=== PATIENT | female | born 1960 | race African-American/Black ===

== ENCOUNTER → 2020-07-10 | Outpatient (CLI) | payer OTHER, MEDICAID ==
[~2020-07-10] MED LIST: ABILIFY PO; AMIT50TA3 PO; AMLO-489; BUPR1TAB82 PO; DOCU-94 PO; FER325T PO; FURO1TAB33 PO; LEV50T PO; LISIPOW PO; MULTCAP45 PO; OME20GT; PERCOCET 10/325 PO; POTA1TAB61 PO; SERT-160 PO; TIZA4CAP PO; TOPI25TA43; XANAX PO; ZOLOFT PO
== END | disposition home or self-care (01) ==
LOC: Rad HDHVI 15:59
PROVIDERS: ATTEND Internal Medicine Cardiovascular Disease
DX: I35.1 Nonrheumatic aortic (valve) insufficiency (principal); R07.89 Other chest pain
CPT/HCPCS: 93306

== ENCOUNTER → 2020-08-10 | Outpatient (CLI) | payer OTHER, MEDICAID ==
[~2020-08-10] VITALS: Ht 165.1 cm; Wt 64.0 kg
== END | disposition home or self-care (01) ==
LOC: Rad HDHVI 09:12
PROVIDERS: ATTEND Internal Medicine Cardiovascular Disease
DX: I50.23 Acute on chronic systolic (congestive) heart failure (principal); R06.02 Shortness of breath
CPT/HCPCS: 93017

== ENCOUNTER 2022-08-21 11:31 | Emergency (ER) | payer OTHER, MEDICAID ==
[~2022-08-21] VITALS: Ht 157.5 cm; Wt 65.4 kg
[~2022-08-21 11:31] MED LIST changes: -AMIT50TA3 PO; +AMIT50TA5 PO
[2022-08-21 12:15] VITALS: BP 138/86
[2022-08-21 13:47] LABS: Basophils # (auto) 0 10 ^3/uL (0-0.2); Basophils % (auto) 0.3 % (0.0-2.0); Eosinophils # (auto) 0.1 10 ^3/uL (0-0.8); Hematocrit 31.5 % (36.0-46.0); Lymphocytes # (auto) 0.8 10 ^3/uL (0.4-5.4); Lymphocytes % (auto) 20.5 % (10.0-50.0); Mean Corpuscular Hemoglobin 27.2 pg (28.0-32.0); Mean Corpuscular Hgb Conc. 31.8 g/dL (32.0-36.0); Mean Corpuscular Volume 85.8 fL (80.0-100.0); Monocytes # (auto) 0.2 10 ^3/uL (0-1.3); Monocytes % (auto) 5.4 % (0.0-12.0); Neutrophils # (auto) 2.9 10 ^3/uL (1.6-8.6); Neutrophils % (auto) 71.8 % (37.0-80.0); Nucleated Red Blood Cells % 0.1 %; Red Blood Cells 3.67 10^6/uL (4.0-5.20); Red Cell Distribution Width 14.3 % (11.8-14.3)
[2022-08-21 14:22] LABS: Albumin 3.2 g/dL (3.4-5.0); Potassium 3.4 mmol/L (3.5-5.1)
[2022-08-21 14:26] LABS: BUN/Creatinine Ratio 11.8; Bilirubin, Total 0.1 mg/dL (0.2-1.0)
== END 2022-08-21 22:06 | disposition home or self-care (01) ==
LOC: ER 11:31
DX: S09.8XXA Other specified injuries of head, initial encounter (principal); M25.552 Pain in left hip; M25.512 Pain in left shoulder; E04.1 Nontoxic single thyroid nodule; R94.31 Abnormal electrocardiogram [ECG] [EKG]; W18.39XA Other fall on same level, initial encounter; Y93.89 Activity, other specified; Y92.89 Other specified places as the place of occurrence of the external cause; Y99.8 Other external cause status
CPT/HCPCS: 36415; 70450; 71045; 72125; 73030; 73502; 80053; 84484; 85025; 93005